=== PATIENT | male | born 1950 | race Caucasian/White ===

== ENCOUNTER 2020-10-30 04:29 | Observation (INO) ==
[2020-10-30 05:40] LABS: BUN/Creatinine Ratio 19 (6-26); Blood Urea Nitrogen 21 mg/dL (8-23); Carbon Dioxide 23 mEq/L (23-29); Chloride 106 mEq/L (98-107); Glucose 139 mg/dL (70-105); Osmolality,Calculated 289 (280-300); Potassium 5.3 mEq/L (3.5-5.1); Sodium 137 mEq/L (136-145); Troponin I 0.05 ng/mL (< 0.04); eGFR For African Americans > 60 (> 60); eGFR For Non-African Americans > 60 (> 60)
[2020-10-30 05:52] LABS: Prothrombin Time 11.3 Seconds (9.4-12.1)
[2020-10-30 05:55] LABS: Activated Partial Thrombo Time 27.8 Seconds (26.0-36.0)
[2020-10-30 06:10] LABS: Basophils % 0.3 %; Eosinophils # 0.1 K/mcL (0.0-0.6); Eosinophils % 2.1 %; Hematocrit 40.9 % (37.5-50.1); Hemoglobin 13.5 g/dL (12.9-16.9); Immature Granulocytes % 0.3 % (0-4); Immature Platelets 4.3 % (1.1-6.1); Lymphocytes # 1.2 K/mcL (0.6-4.6); Lymphocytes % 18.4 %; Mean Corpuscular Hemoglobin 31.2 pg (28.0-33.3); Mean Corpuscular Volume 94.5 fL (83.0-100.0); Mean Platelet Volume 10.5 fL (9.4-12.4); Monocytes # 0.6 K/mcL (0.0-1.3); Monocytes % 8.2 %; Neutrophils # 4.8 K/mcL (1.6-8.9); Platelet Count 123 K/mcL (140-400); Red Blood Count 4.33 M/mcL (4.19-5.50); Red Cell Distribution Width 13.4 % (11.5-14.5); Segmented Neutrophils % 70.7 %; White Blood Count 6.7 K/mcL (4.3-11.1)
[2020-10-30] MEDS ORDERED: Azithromycin 500 MG in 0.9 % Sodium Chloride 250 ML IVPB ONE (07:01)
[2020-10-30] MEDS ORDERED: cefTRIAXone 1,000 MG in 0.9 % Sodium Chloride Mini Bag 100 ML IVPB ONE (07:01)
[2020-10-30] MEDS ORDERED: Naloxone 0.4 MG/ML INJ IVP PRN (07:34)
[2020-10-30] MEDS ORDERED: Ondansetron 4 MG/2 ML VIAL IVP PRN (07:34)
[2020-10-30] MEDS ORDERED: Morphine Sulfate 2 MG/ML SYRINGE IVP PRN (07:37)
[2020-10-30] MEDS ORDERED: Aspirin 81 MG TAB.CHEW PO ONE (07:39)
[2020-10-30] MEDS ORDERED: Morphine Sulfate 2 MG/ML SYRINGE IVP ONE (08:38)
[2020-10-30] MEDS ORDERED: *HR* Dextrose 50 % in Water (Vial) 50 ML VIAL IVP PRN (09:15)
[2020-10-30] MEDS ORDERED: D5% in Water 1,000 ML IVC PRN (09:15)
[2020-10-30] MEDS ORDERED: Dextrose Gel 15 GM/37.5 ML TUBE PO PRN ×2 (09:15)
[2020-10-30] MEDS: 0.9 % Sodium Chloride 1,000 ML IVC SCH (12:11)
[2020-10-30] MEDS: Insulin LISPRO 300 UNITS/3 ML VIAL SUBQ SCH ×2 (14:08→16:37)
[2020-10-30] MEDS ORDERED: *HR* Heparin 5,000 UNIT/ML VIAL SQ SCH (18:00)
[2020-10-30] MEDS ORDERED: Insulin LISPRO 300 UNITS/3 ML VIAL SUBQ SCH (21:00)
[2020-10-30 21:13] LABS: Adenovirus Not Detected (Not Detect); Coronavirus 229E Not Detected (Not Detect); Coronavirus HKU1 Not Detected (Not Detect); Coronavirus NL63 Not Detected (Not Detect); Coronavirus OC43 Not Detected (Not Detect)
[2020-10-30 21:14] LABS: Bordetella Pertussis Not Detected (Not Detect); Chlamydophila pneumoniae Not Detected (Not Detect); Human Metapneumovirus Not Detected (Not Detect); Human Rhinovirus/Enterovirus Not Detected (Not Detect); Influenza A Subtype 2009 H1 Not Detected (Not Detect); Influenza B Not Detected (Not Detect); Mycoplasma pneumoniae Not Detected (Not Detect); Parainfluenza Virus 1 Not Detected (Not Detect); Parainfluenza Virus 2 Not Detected (Not Detect); Parainfluenza Virus 3 Not Detected (Not Detect); Parainfluenza Virus 4 Not Detected (Not Detect); Respiratory Syncytial Virus Not Detected (Not Detect); SARS-CoV-2 DETECTED (Not Detect)
[2020-10-30] MEDS ORDERED: Albuterol 2.5 MG/3 ML NEBULIZER IH PRN (22:21)
[2020-10-30] MEDS ORDERED: Remdesivir 200 MG in 0.9 % Sodium Chloride 100 ML IVPB ONE (22:22)
[2020-10-30] MEDS ORDERED: Benzonatate 100 MG CAPSULE PO PRN (22:42)
[2020-10-30] MEDS: BUPRENORPHINE HCL SL SCH (22:46)
[2020-10-30] MEDS: NALOXONE HCL SL SCH (22:46)
[2020-10-30 23:12] LABS: Albumin 3.7 g/dL (3.5-5.7); Albumin/Globulin Ratio 1.2 (1.1-2.2); Bilirubin,Direct 0.1 mg/dL (0.0-0.2); Bilirubin,Indirect 0.5 mg/dL (0.0-1.0); Bilirubin,Total 0.6 mg/dL (0.3-1.0); Globulin 3.2 g/dL (2.4-3.5); Total Protein 6.9 g/dL (6.4-8.9)
[2020-10-31] MEDS ORDERED: Acetaminophen 325 MG TABLET PO PRN
[2020-10-31] MEDS ORDERED: Albuterol 2.5 MG/3 ML NEBULIZER IH SCH
[2020-10-31] MEDS: 0.9 % Sodium Chloride 1,000 ML IVC SCH (01:59)
[2020-10-31 02:57] LABS: Basophils % 0.2 %; Hematocrit 39.4 % (37.5-50.1); Immature Granulocytes % 0.6 % (0-4); Lymphocytes # 0.4 K/mcL (0.6-4.6); Lymphocytes % 7.7 %; Mean Corpuscular Hemoglobin 31.1 pg (28.0-33.3); Mean Corpuscular Volume 94.3 fL (83.0-100.0); Mean Platelet Volume 10.6 fL (9.4-12.4); Monocytes # 0.1 K/mcL (0.0-1.3); Monocytes % 2.8 %; Neutrophils # 4.2 K/mcL (1.6-8.9); Platelet Count 102 K/mcL (140-400); Red Blood Count 4.18 M/mcL (4.19-5.50); Red Cell Distribution Width 13.3 % (11.5-14.5); Segmented Neutrophils % 88.7 %; White Blood Count 4.7 K/mcL (4.3-11.1)
[2020-10-31 03:22] LABS: Albumin 3.6 g/dL (3.5-5.7); Albumin/Globulin Ratio 1.2 (1.1-2.2); Bilirubin,Direct 0.2 mg/dL (0.0-0.2); Bilirubin,Indirect 0.4 mg/dL (0.0-1.0); Bilirubin,Total 0.6 mg/dL (0.3-1.0); Globulin 3.1 g/dL (2.4-3.5); Total Protein 6.7 g/dL (6.4-8.9)
[2020-10-31 03:23] LABS: BUN/Creatinine Ratio 25 (6-26); Blood Urea Nitrogen 19 mg/dL (8-23); Calcium 8.5 mg/dL (8.6-10.3); Carbon Dioxide 21 mEq/L (23-29); Chloride 105 mEq/L (98-107); Glucose 169 mg/dL (70-105); Magnesium 1.7 mg/dL (1.6-2.6); Osmolality,Calculated 290 (280-300); Phosphorous 2.6 mg/dL (2.7-4.5); Sodium 137 mEq/L (136-145); eGFR For African Americans > 60 (> 60); eGFR For Non-African Americans > 60 (> 60)
[2020-10-31] MEDS ORDERED: *HR* Enoxaparin 40 MG/0.4 ML SYRINGE SQ SCH (06:00)
[2020-10-31] MEDS ORDERED: Azithromycin 500 MG in 0.9 % Sodium Chloride 250 ML IVPB SCH (08:00)
[2020-10-31] MEDS: BUPRENORPHINE HCL SL SCH (08:25)
[2020-10-31] MEDS: NALOXONE HCL SL SCH (08:25)
[2020-10-31] MEDS: Insulin LISPRO 300 UNITS/3 ML VIAL SUBQ SCH ×2 (08:35→11:56)
[2020-10-31 08:38] VITALS: BP 104/60; PULSE 89; TEMP 97.8
[2020-10-31] MEDS ORDERED: lisinopriL 10 MG TABLET PO SCH (09:00)
[2020-10-31] MEDS ORDERED: cefTRIAXone 1,000 MG in Water for inj. (sterile) 10 ML IVP SCH (09:00)
[2020-10-31 12:27] VITALS: O2SAT 98
[2020-10-31] MEDS ORDERED: Remdesivir 100 MG in 0.9 % Sodium Chloride 100 ML IVPB SCH (23:45)
== END 2020-10-31 13:59 | disposition home or self-care (01) ==
LOC: 3BNU 04:29 → EMEROOARM 04:29 → SUATTDRO 12:57 → 3BNU 13:38
PROVIDERS: ADMIT Student in an Organized Health Care Education/Training Program; ATTEND Family Medicine